=== PATIENT | male | born 1970 | race Caucasian/White ===

== ENCOUNTER 2024-12-05 05:40 | Emergency (ER) | payer BC ==
[~2024-12-05] VITALS: Ht 170.2 cm; Wt 74.8 kg
[2024-12-05 05:54] VITALS: BP 125/76; TEMP 98; O2SAT 96
== END 2024-12-05 07:49 | disposition home or self-care (01) ==
LOC: ER 05:47
DX: S02.2XXA Fracture of nasal bones, initial encounter for closed fracture (principal); Z88.0 Allergy status to penicillin; Z90.89 Acquired absence of other organs; Z88.8 Allergy status to other drugs, medicaments and biological substances; Z60.2 Problems related to living alone; X58.XXXA Exposure to other specified factors, initial encounter; Y93.89 Activity, other specified; Y92.89 Other specified places as the place of occurrence of the external cause; Y99.8 Other external cause status
CPT/HCPCS: 70160-TC